=== PATIENT | female | born 1995 | race Caucasian/White ===

== ENCOUNTER 2017-07-01 08:11 | Emergency (ER) | payer OTHER ==
[~2017-07-01] VITALS: Ht 172.7 cm; Wt 144.5 kg
[2017-07-01 08:12] VITALS: Ht 172.7 cm; Wt 144.5 kg
--- NOTE | 2017-07-01 08:48 | ERD ---
ER Documentation Chief Complaint Date/Time DATE: 07/01/17 TIME: 08:46 Chief Complaint LEFT EAR PAIN X3 DAYS HPI 21-year-old female presenting with left ear pain for 3 days, worsening. The pain is constant, aching, nonradiating. She rates it at a 6-7 out of 10. She denies swimming recently. No upper respiratory infection symptoms. No nausea, vomiting, fever, chills. She does report decreased hearing out of the left ear since her pain started. Her vaccines are up-to-date. ROS All systems reviewed and are negative except as per history of present illness. Allergies Allergies: Coded Allergies: No Known Allergy (Unverified , 07/01/17) PMhx/Soc Medical and Surgical Hx: pt denies Medical Hx, pt denies Surgical Hx FmHx Family History: No diabetes Physical Exam Vitals Vital Signs Date Time Temp Pulse Resp B/P Pulse Ox O2 Delivery O2 Flow Rate FiO2 07/01/17 08:12 97.8 98 16 141/86 97 Physical Exam Const: Well-appearing, no apparent distress Head: Atraumatic Eyes: Normal Conjunctiva, PERRLA ENT: Normal External Ears, Nose and Mouth. Right TM normal. Left TM with purulence behind it and bulging. Neck: Full range of motion..~ No meningismus. No cervical lymphadenopathy Resp: Clear to auscultation bilaterally Cardio: Regular rate and rhythm, no murmurs Abd: Soft, non tender, non distended. Normal bowel sounds Skin: No petechiae or rashes Back: No midline or flank tenderness Ext: No cyanosis, or edema Neur: Awake and alert, cranial nerves intact Psych: Normal Mood and Affect Procedures/MDM Patient is presenting with symptoms and exam consistent with left otitis media. Vitals are stable. I do not suspect intracranial infection. She will be discharged with antibiotics and return precautions. Departure Diagnosis: Primary Impression: Left otitis media Otitis media type: unspecified Chronicity: unspecified Qualified Code: H66.92 - Left otitis media, unspecified chronicity, unspecified otitis media type Condition: Stable BRANDY FALCON MD Jul 01, 2017 08:48
[2017-07-01] MEDS ORDERED: AMOX1TAB10 PO (08:49)
== END 2017-07-01 09:18 | disposition home or self-care (01) ==
LOC: FTE 08:11
DX: H66.92 Otitis media, unspecified, left ear (principal)
CPT/HCPCS: 99283